=== PATIENT | female | born 1965 | race Caucasian/White ===

== ENCOUNTER 2021-01-11 12:48 | Emergency (ER) | payer SELFPAY ==
[2021-01-11 12:57] VITALS: Ht 162.6 cm; Wt 75.0 kg
[2021-01-11] MEDS ORDERED: LISINOPRIL2.5 MG (12:58)
[2021-01-11] MEDS ORDERED: LIPITOR20 MG (12:59)
[2021-01-11] MEDS ORDERED: HYDROCODONE-AC1 EAC2 PO (16:00)
== END 2021-01-11 16:42 | disposition home or self-care (01) ==
LOC: D.ER 12:48
DX: M79.662 Pain in left lower leg (principal); S82.102A Unspecified fracture of upper end of left tibia, initial encounter for closed fracture; W01.0XXA Fall on same level from slipping, tripping and stumbling without subsequent striking against object, initial encounter; I10 Essential (primary) hypertension